=== PATIENT | female | born 1995 | race Caucasian/White ===

== ENCOUNTER 2017-05-08 16:16 | Inpatient (IN) ==
[2017-05-09] MEDS ORDERED: PEPCID IV PRN (00:11)
[2017-05-09] MEDS ORDERED: BRETHINE SUBQ PRN (00:11)
[2017-05-09] MEDS ORDERED: TYLENOL PO PRN (00:11)
[2017-05-09] MEDS ORDERED: STADOL IV PRN ×2 (00:11)
[2017-05-09] MEDS ORDERED: KEFZOL 1 GM/D5W 1 GM/50 ML IVPB IV PRN (00:11)
[2017-05-09] MEDS ORDERED: PEPCID PO PRN (00:11)
[2017-05-09] MEDS ORDERED: ZOFRAN IV PRN (00:11)
[2017-05-09] MEDS: LR 1,000 ML IV PRN ×3 (00:35→13:22)
[2017-05-09] MEDS ORDERED: CYTOTEC PO ONE ×2 (01:00→09:00)
[2017-05-09 01:23] LABS: URINE SOURCE VOIDED
[2017-05-09] MEDS: AMBIEN PO PRN (01:24)
[2017-05-09 01:32] LABS: UR AMPHETAMINES QUAL NONE DETECTED (NONE DETECT); UR BARBITUATES QUAL NONE DETECTED (NONE DETECT); UR BENZODIAZEPIN QUAL NONE DETECTED (NONE DETECT); UR CANNABINOIDS QUAL NONE DETECTED (NONE DETECT); UR COCAINE QUAL NONE DETECTED (NONE DETECT); UR MDMA QUAL NONE DETECTED (NONE DETECT); UR METHADONE QUAL NONE DETECTED (NONE DETECT); UR METHAMPHETAMINE QUAL NONE DETECTED (NONE DETECT); UR OPIATES QUAL NONE DETECTED (NONE DETECT); UR OXYCODONE QUAL NONE DETECTED (NONE DETECT); UR PCP QUAL NONE DETECTED (NONE DETECT); UR TCA QUAL NONE DETECTED (NONE DETECT)
[2017-05-09 01:42] LABS: BILIRUBIN URINE NEGATIVE (NEGATIVE); BLOOD URINE NEGATIVE (NEGATIVE); CLARITY CLEAR (CLEAR); COLOR YELLOW; GLUCOSE URINE NEGATIVE (NEGATIVE); LEUKOCYTES URINE TRACE (NEGATIVE); NITRITE URINE NEGATIVE (NEGATIVE); PH URINE 6.5; PROTEIN URINE TRACE mg/dL (NEGATIVE); UROBILINOGEN URINE NORMAL
[2017-05-09 04:18] LABS: BASO% 0.2 % (0.0-0.8); EOS# 0.06 X1000 (0.0-0.7); EOS% 0.5 % (0.0-10.0); HEMATOCRIT 34.8 % (37.0-47.0); HEMOGLOBIN 11.3 g/dL (12.0-16.0); IMM GRAN# 0.07 X1000 (0.0-0.04); IMM GRAN% 0.5 % (0.0-0.5); LYMPH# 2.59 X1000 (1.2-3.4); LYMPH% 19.9 % (20.5-51.1); MANUAL DIFF NEEDED? NO; MCH 24.3 PG (27-31); MCHC 32.5 g/dL (33-37); MCV 74.8 FL (81-99); MONO% 6.1 % (1.7-9.3); MPV 10.4 FL (7.4-10.4); NEUT% 72.8 % (42.2-75.2); PLT 384 X1000 (130-400); RBC 4.65 XMIL (4.2-5.4)
[2017-05-09] MEDS ORDERED: CYTOTEC PO SCH (05:00)
[2017-05-09] MEDS: STADOL IV PRN ×3 (05:38→10:15)
[2017-05-09] MEDS ORDERED: SODIUM CHLORIDE 0.9% INJ PRN (07:31)
[2017-05-09] MEDS ORDERED: PHENERGAN IV PRN (07:31)
[2017-05-09] MEDS ORDERED: PITOCIN 30 UNITS/LR 30 UNITS/500 ML IV.SOLN IV SCH (09:00)
[2017-05-09] MEDS ORDERED: FENTANYL-BUPIV-NS 2 MCG-0.1% 200 ML ONE ×2 (10:16→18:53)
[2017-05-09] MEDS ORDERED: FENTANYL-BUPIV-NS 2 MCG-0.1% 200 ML EPIDURAL PRN (10:21)
[2017-05-09] MEDS ORDERED: NAROPIN 0.2% ONE (16:18)
[2017-05-09] MEDS ORDERED: MINERAL OIL ONE (19:53)
[2017-05-09] MEDS ORDERED: XYLOCAINE-MPF 1% INJ ONE (19:53)
[2017-05-10] MEDS ORDERED: AMBIEN PO PRN (00:53)
[2017-05-10] MEDS ORDERED: XYLOCAINE-MPF 1% INJ PRN (00:53)
[2017-05-10] MEDS ORDERED: M-M-R II VACCINE SUBQ ONE (00:53)
[2017-05-10] MEDS ORDERED: PERI MEDS (DERMOPLAST/NUPERCAINAL/TUCKS) MISC PRN (00:53)
[2017-05-10] MEDS ORDERED: HYDROXYZINE PO PRN (00:53)
[2017-05-10] MEDS ORDERED: BOOSTRIX VACCINE IM ONE (00:53)
[2017-05-10] MEDS ORDERED: CYTOTEC PO PRN (00:53)
[2017-05-10] MEDS ORDERED: PITOCIN 20 UNITS/LR 20 UNITS/1,000 ML IV.SOLN IV SCH (00:53)
[2017-05-10] MEDS ORDERED: PERCOCET-10 PO PRN (00:53)
[2017-05-10] MEDS ORDERED: MINERAL OIL PO PRN (00:53)
[2017-05-10] MEDS ORDERED: PITOCIN 30 UNITS/LR 30 UNITS/500 ML IV.SOLN IV ONE (00:53)
[2017-05-10] MEDS ORDERED: NORCO-5 PO PRN (00:53)
[2017-05-10] MEDS ORDERED: BENADRYL IV PRN (00:53)
[2017-05-10] MEDS ORDERED: BENADRYL PO PRN (00:53)
[2017-05-10] MEDS ORDERED: PITOCIN IM PRN (00:53)
[2017-05-10] MEDS ORDERED: HYDROXYZINE IM PRN (00:53)
[2017-05-10] MEDS ORDERED: PERCOCET-5 PO PRN (00:53)
[2017-05-10] MEDS: NORCO-10 PO PRN ×5 (01:14→20:46)
[2017-05-10] MEDS: MOTRIN PO PRN ×2 (06:13→20:46)
[2017-05-10] MEDS: PERICOLACE PO SCH (20:46)
[2017-05-11 06:26] LABS: MANUAL DIFF NEEDED? NO
[2017-05-11 06:39] LABS: BASO% 0.2 % (0.0-0.8); EOS# 0.34 X1000 (0.0-0.7); EOS% 2.8 % (0.0-10.0); HEMATOCRIT 27.9 % (37.0-47.0); HEMOGLOBIN 8.7 g/dL (12.0-16.0); IMM GRAN# 0.04 X1000 (0.0-0.04); IMM GRAN% 0.3 % (0.0-0.5); LYMPH# 3.38 X1000 (1.2-3.4); LYMPH% 27.9 % (20.5-51.1); MCH 24.2 PG (27-31); MCHC 31.2 g/dL (33-37); MCV 77.7 FL (81-99); MONO# 0.94 X1000 (0.11-0.59); MONO% 7.8 % (1.7-9.3); MPV 10.2 FL (7.4-10.4); PLT 298 X1000 (130-400); RBC 3.59 XMIL (4.2-5.4)
[2017-05-11] MEDS: MOTRIN PO PRN ×2 (09:20→22:48)
[2017-05-11] MEDS: NORCO-10 PO PRN ×2 (13:29→22:48)
[2017-05-11] MEDS: AMBIEN PO PRN (22:48)
[2017-05-11] MEDS: PERICOLACE PO SCH (22:48)
[2017-05-12 09:04] VITALS: BP 104/52
[2017-05-12] MEDS: MOTRIN PO PRN (10:33)
== END 2017-05-12 13:50 | disposition home or self-care (01) ==
LOC: P.LD 20:31 → P.WC 21:55 → P.LD 21:59
PROVIDERS: ADMIT Obstetrics & Gynecology; ATTEND Obstetrics & Gynecology